=== PATIENT | female | born 1965 | race Caucasian/White ===

== ENCOUNTER 2017-10-01 17:43 | Emergency (ER) | payer MEDICARE, OTHER ==
[~2017-10-01] VITALS: Ht 160 cm; Wt 60.0 kg
[2017-10-01 17:52] VITALS: BP 107/57
== END 2017-10-01 20:55 | disposition left against medical advice (07) ==
LOC: ER 18:10
DX: R11.2 Nausea with vomiting, unspecified (principal); Z53.21 Procedure and treatment not carried out due to patient leaving prior to being seen by health care provider